=== PATIENT | female | born 1965 | race Caucasian/White ===

== ENCOUNTER 2017-08-05 23:15 | Emergency (ER) | END 2017-08-05 23:58 | disposition left against medical advice (07) | LOC: ERS 23:15 | DX: Z53.21 Procedure and treatment not carried out due to patient leaving prior to being seen by health care provider (principal) ==

== ENCOUNTER 2017-08-07 12:57 | Emergency (ER) | payer SELFPAY ==
[2017-08-07 13:34] LABS: Bilirubin Negative (Negative); Blood, Urine Large (Negative); Clarity CLEAR (Clear); Glucose, Urine (Dipstick) Negative (Negative); Leukocyte Small (Negative); Nitrite Negative (Negative); Protein, Urine (Dipstick) Trace mg/dL (Neg-Trace); Specific Gravity, Urine 1.024 (1.002-1.036); pH, Urine 6.5 (5.0-9.0)
[2017-08-07 13:39] LABS: Bacteria/HPF None Seen HPF (None Seen); Hyaline Casts/LPF 0-3 HYALINE CAST LPF (0-3 Hyaline); Pathc Cast-AUWi Flag 0.14 (0-2.49); RBC/HPF GREATER THAN 50-TNTC HPF (0-3); Squamous Epithelial 0-3 HPF (0-3); WBC/HPF 0-3 HPF (0-3)
[2017-08-07 14:35] LABS: #Lymphocytes 1.8 thou/uL (1.20-3.40); #Neutrophils 7.9 thou/uL (1.40-6.50); %Basophils 0.4 % (0.0-1.0); %Eosinophils 0.2 % (0.0-10.0); %Lymphocytes 16.9 % (21.0-51.0); %Monocytes 8.9 % (0.0-10.0); %Neutrophils 73.7 % (42.0-75.0); Hemoglobin 13.4 g/dL (12.0-16.0); Mean Corpuscular HGB CONC 32.7 g/dL (32.0-36.0); Mean Corpuscular Hemoglobin 30.2 pg (27.0-31.0); Mean Corpuscular Volume 92.4 fL (78.0-98.0); Mean Platelet Volume 7.2 fL (7.4-10.4); Platelet Count 275 thou/uL (130-400); RBC Distribution Width 11.4 % (11.5-14.5); Red Blood Cell (RBC) Count 4.42 mill/uL (4.20-5.40); White Blood Cell (WBC) Count 10.7 thou/uL (4.8-10.8)
[2017-08-07] MEDS ORDERED: Ondansetron ODT 4 MG TAB ONE (14:39)
[2017-08-07] MEDS ORDERED: Ketorolac Tromethamine 30 MG/ML VIAL ONE (14:39)
--- NOTE | 2017-08-07 14:47 | CT ---
CT ABDOMEN AND PELVIS WITHOUT CONTRAST: HISTORY: Left-sided abdominal pain migrating from left lower quadrant to left upper quadrant to back. FINDINGS: The absence of oral and IV contrast reduces the sensitivity of the exam, particularly for evaluation of solid organs involved. There is a 5 mm left ureteric calculus at the L3-4 level with ipsilateral hydroureteral nephrosis. POS: C
[2017-08-07 15:04] LABS: ALT (SGPT) 14 U/L (8-55); AST (SGOT) 21 U/L (5-34); Albumin 4.4 g/dL (3.5-5.0); Alkaline Phosphatase 51 U/L (40-150); Anion Gap 10 mmol/L (10-20); BUN (Urea Nitrogen) 23 mg/dL (9.8-20.1); Bilirubin, Total 1.5 mg/dL (0.2-1.2); Calc. Creatinine Clearance 0 mL/min (70-130); Calcium 9.7 mg/dL (7.8-10.44); Carbon Dioxide 28 mmol/L (22-29); Chloride 104 mmol/L (98-107); Estimated GFR-MDRD 41; Globulin 3.7 g/dL (2.4-3.5); Glucose 119 mg/dL (70-105); Lipase 23 U/L (8-78); Potassium 4.1 mmol/L (3.5-5.1); Protein, Total 8.1 g/dL (6.0-8.3); Sodium 138 mmol/L (136-145)
--- NOTE | 2017-08-08 07:53 | CT ---
CT ABDOMEN AND PELVIS WITHOUT CONTRAST: 08/07/17 HISTORY: Left sided abdominal pain migrating from the left lower quadrant to the left upper quadrant to the ba ck. FINDINGS: Absence of oral and IV contrast reduces the sensitivity of the exam particularly for the evaluation o f solid organs. There is a 7 mm ureteric calculus at the L3-4 level with ipsilateral hydroureteronephrosis. There ar e a few tiny left renal calculi. A 1 cm cortical cyst is seen in the left kidney. No calculi are note d in the right kidney, right ureter, or the urinary bladder. No right sided hydroureteronephrosis is present. The lung bases are clear. No free air or free fluid is seen in the abdomen or pelvis. No calcified ga llstones are noted. A normal appearing appendix is present. The uterus are ovaries are present. There is a 2 cm left ovarian cyst. Fecal material is present in the colon. There are vascular calcificatio ns without evidence of aneurysmal dilatation of the abdominal aorta. There are mild degenerative reinoso ges in the spine. IMPRESSION: 1. 7 mm obstructing left ureteric calculus at L3-4 level. 2. Tiny left renal calculi. 3. Left renal cyst. 4. 2 cm left ovarian cyst. POS: C
== END 2017-08-07 15:01 | disposition home or self-care (01) ==
LOC: ERS 12:57
DX: N13.2 Hydronephrosis with renal and ureteral calculous obstruction (principal)
CPT/HCPCS: 36415; 74176; 80053; 81003; 81015; 83690; 85025; 96372; J1885; Q0162

== ENCOUNTER 2021-07-20 14:59 | Emergency (ER) | payer OTHER, SELFPAY ==
[2021-07-20 15:59] LABS: #Basophils 0.1 thou/uL (0.0-0.2); #Lymphocytes 2.3 thou/uL (1.20-3.40); #Monocytes 0.4 thou/uL (0.11-0.59); #Neutrophils 3.6 thou/uL (1.40-6.50); %Basophils 0.8 % (0.0-1.0); %Eosinophils 0.4 % (0.0-10.0); %Monocytes 6.3 % (0.0-10.0); %Neutrophils 56.5 % (42.0-75.0); Hemoglobin 12.9 g/dL (12.0-16.0); Mean Corpuscular Hemoglobin 32.2 pg (27.0-31.0); Mean Corpuscular Volume 97.3 fL (78.0-98.0); Mean Platelet Volume 6.9 fL (7.4-10.4); Platelet Count 288 thou/uL (130-400); RBC Distribution Width 11.9 % (11.5-14.5); Red Blood Cell (RBC) Count 4.02 mill/uL (4.20-5.40); White Blood Cell (WBC) Count 6.3 thou/uL (4.8-10.8)
[2021-07-20 16:19] LABS: Acetaminophen Less than 10.0 mcg/mL (10.0-30.0); Alcohol Less than 10 mg/dL (Less than 10); Salicylate Less than 8.0 mg/dL (15.0-30.0)
[2021-07-20 16:20] LABS: ALT (SGPT) 26 U/L (8-55); AST (SGOT) 25 U/L (5-34); Albumin 4.3 g/dL (3.5-5.0); Alkaline Phosphatase 52 U/L (40-110); Anion Gap 13 mmol/L (10-20); BUN (Urea Nitrogen) 10 mg/dL (9.8-20.1); Bilirubin, Total 1.1 mg/dL (0.2-1.2); Calc. Creatinine Clearance 0 mL/min (70-130); Calcium 9.2 mg/dL (7.8-10.44); Carbon Dioxide 26 mmol/L (22-29); Chloride 107 mmol/L (98-107); Globulin 3.2 g/dL (2.4-3.5); Glucose 118 mg/dL (70-105); Potassium 3.4 mmol/L (3.5-5.1); Protein, Total 7.5 g/dL (6.0-8.3); Sodium 143 mmol/L (136-145)
== END 2021-07-20 16:50 | disposition left against medical advice (07) ==
LOC: ERS 14:59
DX: H93.13 Tinnitus, bilateral (principal); R44.3 Hallucinations, unspecified
CPT/HCPCS: 36415; 80053; 80307; 84443; 85025; 99284

== ENCOUNTER 2021-09-08 07:27 | Emergency (ER) | payer SELFPAY | END 2021-09-08 08:15 | disposition home or self-care (01) | LOC: ERS 07:27 | DX: L40.9 Psoriasis, unspecified (principal); R21 Rash and other nonspecific skin eruption | CPT/HCPCS: 99282 ==